=== PATIENT | female | born 1980 | race African-American/Black ===

== ENCOUNTER 2017-04-08 15:53 | Emergency (ER) | payer MEDICAID ==
[~2017-04-08] VITALS: Ht 175.3 cm; Wt 86.0 kg
[2017-04-08] MEDS ORDERED: ASPIRIN 81MG TABLET PO ONE (18:00)
[2017-04-08 18:42] LABS: BASOPHILS % 0.9 % (0.0-2.0); EOSINOPHILS % 10.5 % (0.0-5.0); HEMATOCRIT. 33.3 % (36.0-48.0); HEMOGLOBIN. 10.6 g/dL (12.0-16.0); LYMPHOCYTES % 30.8 % (20.0-50.0); MEAN CORPUSCULAR HEMOGLOBIN 22.4 pg (28.0-32.0); MEAN CORPUSCULAR VOLUME 70.5 fL (81.0-99.0); MEAN PLATELET VOLUME 10.3 fl (7.4-10.4); MONOCYTES % 8.4 % (2.0-8.0); NEUTROPHILS % 49.4 % (40.0-76.0); PLATELET 267 x1000/uL (130-400); RED BLOOD CELL COUNT 4.72 mill/uL (4.2-5.4); RED CELL DISTRIBUTION WIDTH 16.9 % (11.6-14.6)
[2017-04-08 18:53] LABS: CARBON DIOXIDE 25 mEq/L (21-32); CHLORIDE 108 mEq/L (98-107); TROPONIN I < 0.02 ng/mL (0.00-0.04)
[2017-04-08] MEDS ORDERED: PREDNISONE 20MG TABLET PO ONE (20:15)
[2017-04-08 20:49] VITALS: BP 131/71
== END 2017-04-08 20:50 | disposition home or self-care (01) ==
LOC: ER 18:05
DX: M75.102 Unspecified rotator cuff tear or rupture of left shoulder, not specified as traumatic (principal); G89.29 Other chronic pain
CPT/HCPCS: 36415; 71010; 80053; 83880; 84484; 85025; 93005; 99285; J7512; Z7610

== ENCOUNTER 2017-08-02 19:52 | Emergency (ER) | payer SELFPAY ==
[~2017-08-02] VITALS: Ht 175.3 cm; Wt 87.0 kg
[2017-08-02] MEDS ORDERED: IBUPROFEN 600MG TABLET PO ONE (23:00)
[2017-08-03 01:10] VITALS: BP 119/62
== END 2017-08-03 01:23 | disposition home or self-care (01) ==
LOC: ER 21:34
DX: H61.23 Impacted cerumen, bilateral (principal); H60.92 Unspecified otitis externa, left ear; R05 Cough
CPT/HCPCS: 69209; 99283; A4217

== ENCOUNTER 2018-07-10 12:02 | Emergency (ER) | payer MEDICAID ==
[~2018-07-10] VITALS: Ht 175.3 cm; Wt 86.0 kg
[2018-07-10 12:14] VITALS: BP 117/78
== END 2018-07-10 13:13 | disposition home or self-care (01) ==
LOC: ER 12:36
DX: J04.0 Acute laryngitis (principal); R09.81 Nasal congestion; R09.89 Other specified symptoms and signs involving the circulatory and respiratory systems
CPT/HCPCS: 99283

== ENCOUNTER 2019-03-26 16:08 | Emergency (ER) | payer MEDICAID ==
[~2019-03-26] VITALS: Ht 175.3 cm; Wt 91.0 kg
[2019-03-26] MEDS ORDERED: KETOROLAC 30MG/ML VIAL IV ONE (17:45)
[2019-03-26] MEDS ORDERED: PROCHLORPERAZINE MALEATE 10MG TABLET PO ONE (17:45)
[2019-03-26] MEDS ORDERED: SODIUM CHLORIDE 0.9% 500 ML IV ONE (17:45)
[2019-03-26] MEDS ORDERED: MORPHINE SULFATE 10 MG/ML CPJ IM ONE (19:00)
[2019-03-26] MEDS ORDERED: KETOROLAC 60MG/2ML VIAL IM ONE (19:00)
[2019-03-27 00:15] VITALS: BP 98/57
== END 2019-03-27 00:15 | disposition home or self-care (01) ==
LOC: ER 16:08
DX: S20.212A Contusion of left front wall of thorax, initial encounter (principal); W18.39XA Other fall on same level, initial encounter; Y93.89 Activity, other specified; Y92.89 Other specified places as the place of occurrence of the external cause; Y99.8 Other external cause status
CPT/HCPCS: 71250; 81025; 96372; 99284; J1885; J2270; J7040; Q0164

== ENCOUNTER 2019-05-14 19:46 | Emergency (ER) | payer MEDICAID ==
[~2019-05-14] VITALS: Ht 175.3 cm; Wt 87.0 kg
[2019-05-14] MEDS ORDERED: IPRATROPIUM BROMIDE (0.02%) 0.5MG/2.5ML NEB HHN STA (22:05)
[2019-05-14] MEDS ORDERED: ALBUTEROL (0.083%) 2.5MG/3ML NEB HHN STA (22:05)
[2019-05-14] MEDS ORDERED: DEXAMETHASONE 4MG TABLET PO ONE (22:15)
[2019-05-14 22:53] VITALS: BP 122/71
== END 2019-05-14 23:00 | disposition home or self-care (01) ==
LOC: ER 19:46
DX: J06.9 Acute upper respiratory infection, unspecified (principal); T78.40XA Allergy, unspecified, initial encounter; J45.909 Unspecified asthma, uncomplicated; X58.XXXA Exposure to other specified factors, initial encounter
CPT/HCPCS: 99282; J8540; J7611

== ENCOUNTER 2023-04-12 18:27 | Emergency (ER) | payer MEDICAID, OTHER ==
[~2023-04-12] VITALS: Ht 172.7 cm; Wt 82.0 kg
[2023-04-12 18:35] VITALS: BP 130/87; PULSE 99; RESP 18; TEMP 98.6; O2SAT 100
[2023-04-12] MEDS ORDERED: DIPH25CA83 MT (19:18)
[2023-04-12] MEDS ORDERED: HYDR99LO MT (19:18)
== END 2023-04-12 19:32 | disposition home or self-care (01) ==
LOC: ER 18:27
DX: S90.562A Insect bite (nonvenomous), left ankle, initial encounter (principal); J45.909 Unspecified asthma, uncomplicated; Z88.0 Allergy status to penicillin; W57.XXXA Bitten or stung by nonvenomous insect and other nonvenomous arthropods, initial encounter; Y93.89 Activity, other specified; Y92.89 Other specified places as the place of occurrence of the external cause; Y99.8 Other external cause status
CPT/HCPCS: 99282

== ENCOUNTER 2023-12-31 10:23 | Emergency (ER) | payer MEDICAID ==
[~2023-12-31] VITALS: Ht 175.3 cm; Wt 106.1 kg
[~2023-12-31 10:23] MED LIST: DIPH25CA83 MT; HYDR99LO MT
[2023-12-31 10:37] VITALS: TEMP 98.2; O2SAT 100
[2023-12-31 11:00] VITALS: BP 132/83; PULSE 84; RESP 16
[2023-12-31] MEDS: KETOROLAC 15MG/ML VIAL IM ONE (11:00)
[2023-12-31] MEDS ORDERED: IBUP-2028 MT (11:51)
== END 2023-12-31 12:41 | disposition home or self-care (01) ==
LOC: ER 10:23
DX: M25.532 Pain in left wrist (principal); J45.909 Unspecified asthma, uncomplicated; Z88.0 Allergy status to penicillin; Z90.710 Acquired absence of both cervix and uterus
CPT/HCPCS: 99283; 81025; 73110; 96372; J1885